=== PATIENT | female | born 1935 | race Caucasian/White ===

== ENCOUNTER 2017-12-31 16:19 | Emergency (ER) | payer OTHER ==
[~2017-12-31] VITALS: Ht 144.8 cm; Wt 49.9 kg
[2017-12-31 16:26] VITALS: BP 144/77
[2017-12-31] MEDS: HYDROcodone/APAP 5/325 MG 1 TAB TAB PO ONE (18:06)
[2017-12-31 18:40] VITALS: BP 142/79
== END 2017-12-31 18:40 | disposition home or self-care (01) ==
LOC: MED 16:19
DX: M79.602 Pain in left arm (principal)
CPT/HCPCS: 29125; 73090; 73130; 99284; Q0092